=== PATIENT | female | born 1990 | race Caucasian/White ===

== ENCOUNTER 2020-10-25 22:47 | Emergency (ER) | payer OTHER ==
[2020-10-25] MEDS ORDERED: Ketorolac Tromethamine 30 MG/ML VIAL ONE (23:51)
[2020-10-25] MEDS ORDERED: Cyclobenzaprine 10 MG TAB ONE (23:52)
== END 2020-10-26 00:13 | disposition home or self-care (01) ==
LOC: CSHERS 22:47
DX: M25.512 Pain in left shoulder (principal); J45.909 Unspecified asthma, uncomplicated; X50.1XXA Overexertion from prolonged static or awkward postures, initial encounter; Y92.009 Unspecified place in unspecified non-institutional (private) residence as the place of occurrence of the external cause
CPT/HCPCS: 96372; 99283; J1885